=== PATIENT | female | born 1990 | race Caucasian/White ===

== ENCOUNTER 2016-08-23 21:03 | Emergency (ER) | payer MEDICAID ==
[2016-08-23 23:19] VITALS: BP 127/74
--- OUTSIDE RECORDS SUMMARY | 2016-08-23 23:20 | XMS REPORT | Continuity of Care Document ---
:1990 Author Organization [facility] ([facility]) Address [address] [place] [address] Phone [phone] Care Team Providers Name Role Phone Shelby Barbosa Primary Care Provider [phone] Source Comments This disclosure is being made pursuant to the Care Everywhere program, applicable federal and state laws, and may not contain all informaitonavailable regarding this patient.[facility] ([facility]) Active Allergies and Adverse Reactions No Known Allergies Current Medications Prescription Sig. Disp. Refills Start Date End Date Status ALPRAZolam 0.5 mg tablet Take 0.5 mg by Active mouth 3 times daily as needed. levothyroxine 125 mcg Take 125 mcg by Active tablet mouth every morning before breakfast. dextroamphetamine-amphet Take 20 mg by mouth Active amine 20 mg tablet 2 times daily. venlafaxine 150 mg XR Take 150 mg by Active tablet mouth daily. HYDROcodone-acetaminophe Take 1-2 Tabs by 15 Tab 0 05/09/2014 Active n 5-325 mg per tablet mouth every 6 hours as needed. Indications: PAIN amoxicillin 500 mg Take 1 Cap by mouth 30 Cap 0 05/09/2014 Active capsule 3 times daily. Indications: Toothache Active Problems Problem Noted Date High body mass index 05/09/2014 Social History Tobacco Use Types Packs/Day Years Used Date Never Assessed Last Filed Vital Signs Vital Sign Reading Time Taken Blood Pressure 122/71 05/09/2014 10:10 PM [employer] Pulse 68 05/09/2014 10:10 PM [employer] Temperature 37 C (98.6 F) 05/09/2014 10:10 PM [employer] Respiratory Rate 16 05/09/2014 10:10 PM [employer] Height 1.702 m (5' 7") 05/09/2014 9:32 PM [employer] Weight 117.935 kg (260 lb) 05/09/2014 9:32 PM [employer] Body Mass Index 40.71 05/09/2014 9:32 PM [employer] Oxygen Saturation 98% 05/09/2014 10:10 PM [employer] Plan of Care Health Maintenance Due Date Last Done Comments Hepatitis B Vaccine (1 of 3 - Primary Series) 1990 HPV Vaccine (1 of 3 - Female/Unknown 3 Dose Series) 2000 Tdap Vaccine 2000 Cervical Cancer Screening 08/31/2007 Lipid Disorder Screening 08/31/2007 MMR Vaccine 08/31/2007 Td Vaccine 08/31/2007 Varicella Vaccine (1 of 2 - Adult - No Evidence of 08/31/2007 Immunity) Influenza Vaccine: Seasonal (#1) 12/28/2015 Results from Last 3 Months Not on file
== END 2016-08-23 22:00 | disposition home or self-care (01) ==
LOC: ER 21:03
DX: B86 Scabies (principal)